=== PATIENT | male | born 1990 | race Caucasian/White ===

== ENCOUNTER 2016-08-25 11:12 | Emergency (ER) | payer OTHER ==
[2016-08-25] MEDS ORDERED: ACETAMINOPHEN 325 MG TABLET PO STA (14:09)
[2016-08-25] MEDS ORDERED: IBUPROFEN 600 MG TABLET PO STA (14:09)
[2016-08-25] MEDS ORDERED: IBUPROFEN 600 MG TABLET PO ONE (14:13)
[2016-08-25] MEDS ORDERED: ACETAMINOPHEN 325 MG TABLET PO ONE (14:13)
== END 2016-08-25 14:18 | disposition home or self-care (01) ==
DX: H60.392 Other infective otitis externa, left ear (principal); H60.12 Cellulitis of left external ear; L03.211 Cellulitis of face
CPT/HCPCS: 99283; A9270